=== PATIENT | male | born 1940 | race Caucasian/White ===

== ENCOUNTER 2017-04-03 13:33 | Day surgery (SDC) | payer OTHER ==
[~2017-04-03] VITALS: Ht 180.3 cm; Wt 104.3 kg
[~2017-04-03 13:33] MED LIST: ASCO1500 PO; ATEN50TA PO; CALC-1051 PO; CAR8A PO; FISH1CAP15 PO; HYDR25TA4 PO; MELO-253 PO; MULT-1018 PO; SIMV20TA4 PO; SULF500T3 PO; SYMINH INHALATION; Sodium Chloride LOK Flush 10 mL Syringe IV PRN; TIOT18CA3 IH; fentaNYL-PF 50 mCg/mL 2 mL Inj IVPUSH PRN
[2017-04-03 14:25] VITALS: BP 151/96; PULSE 64; O2SAT 93
[2017-04-03] MEDS: 0.9% Sodium Chloride 1,000 ML IV SCH ×2 (15:00→15:11)
[2017-04-03 15:25] VITALS: BP 156/92; PULSE 57; RESP 16; O2SAT 94
[2017-04-03 15:35] VITALS: BP 146/90; PULSE 58; RESP 16; O2SAT 93
--- NOTE | 2017-04-04 00:04 | ENDO ---
[address] [address] ENDOSCOPY PROCEDURE PATIENT: MOLINA BISHOP : 1940 MR#: [id number] ADMIT: 04/03/2017 JOB ID: [id number] REFERRING PROVIDER: Aravind Llamas MD PROCEDURE: Colonoscopy with hot snare polypectomy and segmental biopsies. INDICATIONS: A 76-year-old male with a history of ulcerative colitis, reporting for surveillance. He is in clinical remission on sulfasalazine. EQUIPMENT: [employer]. SEDATION: 3 mg Versed, 75 mcg fentanyl. COMPLICATIONS: None identified. BOWEL PREPARATION: Fair, adequate exam. PROCEDURE INFORMATION: After the risks and benefits were explained, written and verbal informed consent was obtained. The patient was brought into the endoscopy suite and placed into the left lateral decubitus position. Sedation was achieved using the above-stated medications with the addition of oxygen via nasal cannula. A digital rectal examination was accomplished. Mild internal hemorrhoids noted. The scope was introduced into the rectum and advanced under direct visualization to the level of the cecum, as identified by the appendiceal orifice and ileocecal valve. The scope was slowly withdrawn to carefully examine the mucosa for any defects or lesions. Multiple direct views were made through the dentate line for exclusion of pathology. The colon was decompressed, the scope removed from the patient who tolerated the procedure well. FINDINGS: I did not see any overt signs of colitis or proctitis. Perhaps some very minimal patchy erythema through the sigmoid region. There was moderate diverticulosis through the sigmoid as well. In the distal ascending colon, there was a small 5 mm polyp removed with hot snare. Segmental biopsies were taken from the ascending, transverse, descending, sigmoid, and finally rectum and submitted separately. ENDOSCOPIC DIAGNOSES: 1. Diverticulosis. 2. Colon polyp. 3. Hemorrhoids. RECOMMENDATIONS: 1. Await histopathology. 2. Repeat colonoscopy in two years' time (I do not feel that the polyp in the ascending colon has formed out of chronic inflammation, but was rather a sporadic tubular adenoma).
--- NOTE | 2017-04-05 13:47 | PATH ---
SURGICAL PATHOLOGY Attending Physician:Nehemias Sage CASE STATUS: Signed Out PATIENT NAME: MOLINA BISHOP PID: [id number] : 1940 DATE COLLECTED:04/03/2017 00:00 SPECIMEN: 1: Colon, Biopsy 2: Colon, Biopsy 3: Colon, Biopsy 4: Colon, Biopsy 5: Colon, Biopsy 6: Rectum, Biopsy CLINICAL HISTORY: ULCERATIVE COLITIS, COLON POLYP 1). ASCENDING COLON POLYP 2). ASCENDING COLON BIOPSY 3). TRANSVERSE COLON BIOPSY 4). DESCENDING COLON BIOPSY 5). SIGMOID COLON BIOPSY 6). RECTAL BIOPSY FINAL DIAGNOSIS: 1.ASCENDING COLON POLYP: POLYPOID VILLOUS ADENOMA, NEGATIVE FOR ATYPIA BUT NO DEFINITE POLYP STALK IDENTIFIED. 2.ASCENDING COLON BIOPSY: FRAGMENTS OF NORMAL-APPEARING COLON MUCOSA. Negative for significant architectural distortion. Negative for significant inflammation, dysplasia and malignancy. 3.TRANSVERSE COLON BIOPSY: FRAGMENTS OF NORMAL-APPEARING COLON MUCOSA. Negative for significant architectural distortion. Negative for significant inflammation, dysplasia and malignancy. 4.DESCENDING COLON BIOPSY: MILD ARCHITECTURAL DISTORTION CONSISTENT WITH QUIESCENT CHRONIC COLITIS. Negative for active inflammation. Negative for dysplasia and malignancy. 5.SIGMOID COLON BIOPSY: MILD ARCHITECTURAL DISTORTION CONSISTENT WITH QUIESCENT CHRONIC COLITIS. Negative for active inflammation. Negative for dysplasia and malignancy. 6.RECTAL BIOPSY: FOCAL AREAS OF ARCHITECTURAL DISTORTION CONSISTENT WITH QUIESCENT CHRONIC COLITIS. Negative for active inflammation. Negative for dysplasia and malignancy. ICD10 Z87.19 GROSS DESCRIPTION: The specimen is received in six formalin filled containers labeled with the patient's name. 1). The specimen is sublabeled "ascending colon polyp" and consists of 3 portions of tissue which aggregate to 0.4 x 0.4 x 0.3 CM. The specimen is entirely submitted in cassette 1A. 2). The specimen is sublabeled "ascending colon" and consists of an extremely tiny 0.1 x 0.1 x 0.1 CM portion of tissue which is entirely submitted in cassette 2A. 3). The specimen is sublabeled "transverse colon" and consists of 2 portions of tissue which aggregate to 0.2 x 0.2 x 0.2 CM. The specimen is entirely submitted in cassette 3A. 4). The specimen is sublabeled "descending colon" and consists of 2 portions of tissue which aggregate to 0.2 x 0.2 x 0.2 CM. The specimen is entirely submitted in cassette 4A. 5). The specimen is sublabeled "sigmoid colon" and consists of 2 portions of tissue which aggregate to 0.3 x 0.2 x 0.2 CM. The specimen is entirely submitted in cassette 5A. 6). The specimen is sublabeled "rectal" and consists of 2 tiny portions of tissue which aggregate to 0.2 x 0.2 x 0.2 CM. The specimen is entirely submitted in cassette 6A. 04/04/2017 DAC MICRO DESCRIPTION: See diagnosis. ICD-9 CODES: CPT CODES: 1: 82402 2: 91862 3: 95885 4: 84229 5: 52796 6: 58076 Electronically Signed Out Augie oCy MD Merged With [facility] [address] [facility], [place] [address] Technical component performed at [facility], [facility] [address], [address]
== END 2017-04-03 23:59 | disposition home or self-care (01) ==
LOC: END 13:33
PROVIDERS: ATTEND Internal Medicine Gastroenterology
DX: D12.2 Benign neoplasm of ascending colon (principal); K57.32 Diverticulitis of large intestine without perforation or abscess without bleeding; K51.50 Left sided colitis without complications; K64.8 Other hemorrhoids; Z79.899 Other long term (current) drug therapy
CPT/HCPCS: 45380; 45385; 99153; G0500; J7030